=== PATIENT | female | born 1980 | race Two or more races ===

== ENCOUNTER 2018-05-26 18:57 | Emergency (ER) | payer MEDICAID, OTHER ==
[~2018-05-26] VITALS: Ht 160 cm; Wt 61.2 kg
[2018-05-26 19:01] VITALS: BP 148/79
[2018-05-26] MEDS ORDERED: HYDROcodone-ACET 5/325MG TAB PO ONE (22:30)
[2018-05-26] MEDS ORDERED: TETANUS-DIPTH-ACEL PERTUSSIS 0.5ML SYRG IM ONE (22:30)
[2018-05-26] MEDS ORDERED: ACETAMINOPHEN/CODEINE#3 (300/30mg) TAB PO ONE (22:30)
[2018-05-26] MEDS ORDERED: cefTRIAXone SOD 1,000 MG VL IM ONE (22:30)
== END 2018-05-26 23:28 | disposition home or self-care (01) ==
LOC: ER 19:05
DX: L02.31 Cutaneous abscess of buttock (principal)
CPT/HCPCS: 10060; 90471; 90715; 96372; 99283; C1887; J0696

== ENCOUNTER 2018-05-30 11:15 | Emergency (ER) | payer MEDICAID ==
[~2018-05-30] VITALS: Ht 160 cm; Wt 63.0 kg
[2018-05-30 13:28] VITALS: BP 111/68
== END 2018-05-30 14:19 | disposition home or self-care (01) ==
LOC: ER 11:15
DX: L02.31 Cutaneous abscess of buttock (principal)
CPT/HCPCS: 99281; J7030